=== PATIENT | female | born 1980 | race Caucasian/White ===

== ENCOUNTER 2020-12-13 18:41 | Inpatient (IN) | payer OTHER ==
[~2020-12-13] VITALS: Ht 152.4 cm; Wt 87.3 kg
--- NOTE | ~2020-12-13 | EMS ---
[place] [address] EMS Patient Care Report Name: JACINTO AMADO Room: [facility]#: [id number] Admission: 12/13/20 Attend Phys: Discharge: Date of : [birth year] Report #: [id number] THIS REPORT FOR: //name// Report Transmitted: 12/13/2020 19:16 EMS Care Summary [facility] Incident [id number] @ 12/13/2020 17:47 Incident Location [address] [place] [address] Patient JACINTO AMADO- TONY Female, 40 Years 1980 Patient Address [address] [place] [address] Patient History Cardiac Arrythmia,Hypertension (HTN),Cardiac - Stent,Anxiety, Patient Allergies No known allergies, Patient Medications Carvedilol, Nitroglycerin, ASA, Atorvastatin, Chief Complaint "My chest hurts." Disposition Transported No Lights/[place] Dis[place] Reason Chest Pain (Non-Traumatic) Transported To [facility] Narrative Med 1 response requested to [address] [place] [address] for a female with chest pain. Med 1 copied the call and began our response to the scene. We [place] [address] EMS Patient Care Report Name: JACINTO AMADO Room: [facility]#: [id number] Admission: 12/13/20 Attend Phys: Discharge: Date of : [birth year] Report #: [id number] Sitting up right on the floor right inside the front door to the home we located the patient. Patient being a 40 year old female alert with a GCS of 15. Patient stated that she began having chest pain an hour prior as she was sitting down. The pain began to the left side of her chest and then ran to the upper back. She denied any jaw pain. She denied shortness of air. She did have some nausea without vomiting. Patient was discharged from [facility] the night prior after having stents placed after an [place]. Vitals were obtained at her side. She was given a dose of ASA. ECG 12 lead was obtained. She was placed on oxygen via [place] with capnography. Patient was assisted to stand up and then sit on the cot where she was covered and secured. She was taken to the ambulance and placed inside. Vitals were monitored. ECG monitored. IV access obtained with fluid attached. Zofran IV given for nausea. Nitro spray was given. patient denied any decrease in pain after Nitro was given. Vitals were monitored. We transported non emergent to [place]. Patient was given a second dose of Nitro. She advised again that it did not decrease her discomfort. Vitals were monitored. Report was called in to [facility] via [employer]. We were advised they were on high volume and closed to stroke. Patient wanted to continue to the ER even with high volume status. We advised the ER of the elevation noted in V2,V3,V4 but did not activate as STEMI due to elevation not being elevated enough to meet criteria. Upon arrival to the ER patient was taken inside and to ER 4 where she was moved. Report was given and care was transferred. Signatures were obtained. Med 1 cleared to return to service. Initial Vitals @18:18P: 112,R: 20,BP: 114/77,Pain: 4/10,GCS: 15,EtCO2: 25,SpO2: 99,Revised Trauma: 12, @18:24P: 108,R: 20,BP: 114/70,Pain: 4/10,GCS: 15,EtCO2: 26,SpO2: 98,Revised Trauma: 12, @18:04P: 113,R: 14,BP: 119/78,Pain: 4/10,GCS: 15,EtCO2: 21,SpO2: 100,Revised Trauma: 12, @17:57P: 120,R: 34,BP: 118/70,Pain: 4/10,GCS: 15,SpO2: 99,Revised Trauma: 11, @18:31P: 111,R: 22,BP: 116/70,Pain: 4/10,GCS: 15,EtCO2: 25,SpO2: 98,Revised Trauma: 12, @17:52P: 108,R: 18,BP: 116/70,Pain: 6/10,GCS: 15,Temp: 98.6F,Glucose: 84,SpO2: 99,Revised Trauma: 12, Assessments @17:54MENTAL:Person Oriented,Event Oriented,Time Oriented,Place Oriented,SKIN:HEENT:LUNG SOUNDS:ABDOMEN:PELVIS//GI:EXTREMITIES:PULSE:NEURO:@18:30MENTAL:Place Oriented,Person Oriented,Event Oriented,Time Oriented,SKIN:HEENT:LUNG [address] [address] EMS Patient Care Report Name: JACINTO AMADO Room: [facility]#: [id number] Admission: 12/13/20 Attend Phys: Discharge: Date of : [birth year] Report #: [id number] SOUNDS:ABDOMEN:PELVIS//GI:EXTREMITIES:PULSE:NEURO: Impression Chest Pain / Discomfort Procedures @18:03Lactated Ringers 300cc (20 ga) Site: Hand-LeftResponse: UnchangedSucceeded@17:56Aspirin - 324 Milligrams (mg) - OralResponse: Unchanged@18:06Nitro [place] - 0.4 Milligrams (mg) - SublingualResponse: Unchanged@18:04Zofran - 4 Milligrams (mg) - Intravenous (IV)Response: Improved@18:19Nitro [place] - 0.4 Milligrams (mg) - SublingualResponse: Unchanged@18:1812-Lead ECGResponse: UnchangedSucceeded@18:2412-Lead ECGResponse: UnchangedSucceeded@18:0912-Lead ECGResponse: UnchangedSucceeded@18:0412-Lead ECGResponse: UnchangedSucceeded@17:5712-Lead ECGResponse: UnchangedSucceeded@18:0212-Lead ECGResponse: UnchangedSucceeded Timeline 17:47,Call Received 17:47,Dispatched 17:48,En Route 17:50,On Scene 17:50,At Patient 17:52,BP: 116/70 M,PULSE: 108,RR: 18 R,SPO2: 99 Ox,ETCO2: ,B,PAIN: 6,GCS: 15, 17:56,Aspirin - 324 Milligrams (mg) - Oral,Response: Unchanged 17:57,12-Lead ECG,Response: UnchangedSucceeded, 17:57,BP: 118/70 M,PULSE: 120,RR: 34 R,SPO2: 99 Ox,ETCO2: ,BG: ,PAIN: 4,GCS: 15, 18:02,12-Lead ECG,Response: UnchangedSucceeded, 18:03,Lactated Ringers 300cc 20 ga Site: Hand-Left,Response: UnchangedSucceeded, 18:04,Depart Scene 18:04,Zofran - 4 Milligrams (mg) - Intravenous (IV),Response: Improved 18:04,12-Lead ECG,Response: UnchangedSucceeded, 18:04,BP: 119/78 M,PULSE: 113,RR: 14 R,SPO2: 100 Ox,ETCO2: 21 ,BG: ,PAIN: 4,GCS: 15, 18:06,Nitro [place] - 0.4 Milligrams (mg) - Sublingual,Response: Unchanged 18:09,12-Lead ECG,Response: UnchangedSucceeded, 18:18,12-Lead ECG,Response: UnchangedSucceeded, 18:18,BP: 114/77 M,PULSE: 112,RR: 20 R,SPO2: 99 Ox,ETCO2: 25 ,BG: ,PAIN: 4,GCS: 15, 18:19,Nitro [place] - 0.4 Milligrams (mg) - Sublingual,Response: Unchanged 18:24,12-Lead ECG,Response: UnchangedSucceeded, 18:24,BP: 114/70 M,PULSE: 108,RR: 20 R,SPO2: 98 Ox,ETCO2: 26 ,BG: ,PAIN: 4,GCS: 15, 18:31,BP: 116/70 M,PULSE: 111,RR: 22 R,SPO2: 98 Ox,ETCO2: 25 ,BG: ,PAIN: 4,GCS: 15, [address] [address] EMS Patient Care Report Name: JACINTO AMADO Room: [facility]#: [id number] Admission: 12/13/20 Attend Phys: Discharge: Date of : [birth year] Report #: [id number] 18:38,At Destination 19:00,Call Closed Disclaimer v1.1 Copyright 2020 [employer] This EMS Care Summary contains data elements from the applicable legal record (which may be displayed differently). It is designed to provide pertinent information for the following purposes: continuity of care, clinical quality, and state data reporting. The complete legal record is available to ED staff and administrators of the receiving hospital in [employer]'s Patient Tracker. All data is provided "as is."
[~2020-12-13 18:41] MED LIST: ADVIL; ADVIL100 M2 PO; ALBUTEROL INHAL17 GM IH; BACTRIM DS TAB1 EACH PO; CIPROFLOXACIN500 M1 PO; DIAZEPAM 10 MG10 M1 OR; DOXYCYCLINE 10100 M1 PO; DOXYCYCLINE 10100 MG PO; ERYTHROMYCIN E3.5 G3 OP; FLAGYL500 MG PO; FLEXERIL PO; FLONASE 0.05%50 MCG NASAL; HYDROCODON-ACE1 EAC7 PO; IBUPROFEN 800800 M1 PO; KLONOPIN; LEVAQUIN 750 M750 MG PO; MEDROLDOSEPACK PO; NOHOMEMEDICATIONS; NORCO 5-325 TA1 EACH PO; NORFLEX100 MG PO; PERCOCET 5-3251 EACH PO; PHENERGAN 25 MG25 M1 PO; ROBAXIN 750 MG750 M1 PO; TINDAMAX500 MG PO; TORADOL 10 MG T10 MG PO; ULTRAM 50MG TAB50 MG PO; VICOPROFEN 2001 EACH PO; XANAX 1 MG TABLE1 MG PO; ZOFRAN4 MG PO; ZPAK PO
[2020-12-13 18:43] VITALS: BP 113/73
[2020-12-13] MEDS ORDERED: MARIJUANA (19:07)
[2020-12-13] MEDS ORDERED: IBUPROFEN 800800 M1 PO (19:07)
--- NOTE | 2020-12-13 19:07 | NUR ---
STEMI CANCELED AT 1903.
[2020-12-13] MEDS ORDERED: BENADRYL25 MG PO (19:09)
[2020-12-13] MEDS ORDERED: FIBER GUMMIES1 EACH (19:10)
[2020-12-13] MEDS ORDERED: ASA81BEC PO (19:10)
[2020-12-13] MEDS ORDERED: FLEXERIL PO (19:10)
[2020-12-13 19:11] LABS: ABSOLUTE BASOPHILS 0.1 thou/uL (0.0-0.2); ABSOLUTE EOSINOPHILS 0.1 thou/uL (0.0-0.7); ABSOLUTE LYMPHOCYTES 1.9 thou/uL (0.8-5.3); ABSOLUTE MONOCYTES 0.7 thou/uL (0.0-1.2); ABSOLUTE NEUTROPHILS 7.2 thou/uL (1.6-8.1); BASOPHILS 0.6 %; EOSINOPHILS 1.4 %; HEMATOCRIT 44.2 % (37.0-47.0); HEMOGLOBIN 15.1 gm/dL (12.0-15.0); LYMPHOCYTES 18.7 %; MCH 32.3 pg (26.0-34.0); MCHC 34.1 g/dL (28.0-37.0); MCV 94.7 fL (80.0-100.0); MPV 7.7 fl. (7.2-11.1); NUCLEATED RBCS 0 /100WBC; PLATELET COUNT* 343 thou/uL (150-400); POLYS 72.3 %; RBC 4.67 mil/uL (4.20-5.00); RDW-CV 14.6 % (10.5-14.5)
[2020-12-13] MEDS ORDERED: LAMICTAL XR200 MG PO (19:11)
[2020-12-13] MEDS ORDERED: HALDOL 0.5 MG0.5 MG PO (19:11)
[2020-12-13] MEDS ORDERED: ATIVAN1 M1 PO (19:12)
[2020-12-13] MEDS ORDERED: CLONIDINE HCL0.3 M3 PO (19:12)
[2020-12-13] MEDS ORDERED: ATORVASTATIN CA80 MG PO (19:13)
[2020-12-13 19:14] LABS: POTASSIUM 3.9 mmol/L (3.5-5.1)
[2020-12-13] MEDS ORDERED: CARVEDILOL3.125 MG PO (19:16)
[2020-12-13] MEDS ORDERED: EFFIENT10 MG PO (19:16)
[2020-12-13 19:17] LABS: APTT 27.3 Seconds (25.0-31.3); INR 1.1; PROTIME 11.3 Seconds (9.20-11.50)
[2020-12-13 19:27] LABS: ALBUMIN 3.9 g/dL (3.4-5.0); MAGNESIUM 2.1 mg/dL (1.8-2.4); TOTAL BILIRUBIN 0.5 mg/dL (<0.1-1.0); TOTAL PROTEIN 8.3 g/dL (6.4-8.2)
[2020-12-13 23:47] VITALS: BP 132/76
[2020-12-14] VITALS (14 sets, daily range): BP systolic 100–127; BP diastolic 64–83
--- NOTE | 2020-12-14 11:25 | EKG ---
[place] [address] ELECTROCARDIOGRAM REPORT Name: JACINTO AMADO Room: [address] ADM IN M.R.#: [id number] Admission: 12/13/20 Attend Phys: Antoine Guerra, Discharge: Date of : [birth year] Date of Service: 12/13/20 1846 Report #: [id number] THIS REPORT FOR: //name// [facility] ED Test Date: 2020-12-13 Test Time: 18:46:33 Pat Name: JACINTO AMADO Department: Room: [facility] Gender: F Procurement Inspector: JEM : 1980 Requested By: Vadim Campos Order Number: [id number] MD: Helio Calvin Measurements Intervals [place] Rate: 110 P: 3 OR: 113 QRS: -29 QRSD: 67 T: 56 QT: 319 QTc: 432 Interpretive Statements Sinus tachycardia Borderline left axis deviation Anterior infarct, old Compared to ECG 07/25/2016 06:03:09 Myocardial infarct finding now present ST (T wave) deviation now present Electronically Signed On 12-14-2020 11:25:43 CDT by Helio Calvin [email or web address] <ELECTRONICALLY SIGNED> By: Helio Calvin MD, FACC 12/14/20 1125 1846 1846 Helio Calvin MD, FAC /EPI
--- NOTE | 2020-12-14 11:26 | EKG ---
[place] [address] ELECTROCARDIOGRAM REPORT Name: JACINTO AMADO Room: [address] ADM IN M.R.#: [id number] Admission: 12/13/20 Attend Phys: Antoine Guerra, Discharge: Date of : [birth year] Date of Service: 12/13/201922 Report #: [id number] THIS REPORT FOR: //name// [facility] ED Test Date: 2020-12-13 Test Time: 19:23:58 Pat Name: JACINTO AMADO Department: Room: [facility] Gender: F Screen Cleaner: SILVIO : 1980 Requested By: Abby Charles Order Number: [id number] MD: Helio Calvin Measurements Intervals [place] Rate: 98 P: -10 DC: 118 QRS: -31 QRSD: 96 T: 44 QT: 339 QTc: 433 Interpretive Statements Sinus rhythm Borderline short DC interval Left axis deviation Anterior infarct, old Compared to ECG 12/13/2020 18:46:33 Sinus tachycardia no longer present Myocardial infarct finding still present Electronically Signed On 12-14-2020 11:26:13 CDT by Helio Calvin [email or web address] <ELECTRONICALLY SIGNED> By: Helio Calvin MD, FACC 12/14/20 1126 22 22 Helio Calvin MD, FAC /EPI
--- NOTE | 2020-12-14 11:27 | EKG ---
[place] [address] ELECTROCARDIOGRAM REPORT Name: JACINTO AMADO Room: [address] ADM IN M.R.#: [id number] Admission: 12/13/20 Attend Phys: Antoine Guerra, Discharge: Date of : [birth year] Date of Service: 12/13/202206 Report #: [id number] THIS REPORT FOR: //name// [facility] ED Test Date: 2020-12-13 Test Time: 22:07:18 Pat Name: JACINTO AMADO Department: Room: [facility] Gender: F Rubber Goods Assembler: SILVIO : 1980 Requested By: Abby Charles Order Number: [id number] MD: Helio Calvin Measurements Intervals [place] Rate: 84 P: 50 CA: 126 QRS: 90 QRSD: 137 T: -2 QT: 367 QTc: 434 Interpretive Statements Sinus rhythm Nonspecific intraventricular conduction delay Anterior infarct, old Minimal ST depression, inferior leads Baseline wander in lead(s) V1 Compared to ECG 12/13/2020 19:23:58 Intraventricular conduction delay now present Left-axis deviation no longer present Myocardial infarct finding still present Electronically Signed On 12-14-2020 11:27:12 CDT by Helio Calvin [email or web address] <ELECTRONICALLY SIGNED> By: Helio Calvin MD, [facility] 12/14/201126 06 06 Helio Calvin MD, [facility] /EPI
--- NOTE | 2020-12-14 11:28 | EKG ---
[place] [address] ELECTROCARDIOGRAM REPORT Name: JACINTO AMADO Room: [address] ADM IN M.R.#: [id number] Admission: 12/13/20 Attend Phys: Antoine Guerra, Discharge: Date of : [birth year] Date of Service: 12/13/202206 Report #: [id number] THIS REPORT FOR: //name// [facility] ED Test Date: 2020-12-13 Test Time: 22:07:18 Pat Name: JACINTO AMADO Department: Room: [address] Gender: F Frame Opener: SILVIO : 1980 Requested By: Antoine Guerra Order Number: [id number] MD: Helio Calvin Measurements Intervals [place] Rate: 84 P: 50 [place]: 126 QRS: 90 QRSD: 137 T: -2 QT: 367 QTc: 434 Interpretive Statements Sinus rhythm Nonspecific intraventricular conduction delay Anterior infarct, old Minimal ST depression, inferior leads Baseline wander in lead(s) V1 Compared to ECG 12/13/2020 19:23:58 Left-axis deviation no longer present Myocardial infarct finding still present Electronically Signed On 12-14-2020 11:27:47 CDT by Helio Calvin [email or web address] <ELECTRONICALLY SIGNED> By: Helio Calvin MD, [facility] 12/14/201126 06 06 Helio Calvin MD, [facility] /EPI
--- NOTE | 2020-12-14 12:57 | CARD ---
[address] [address] CARDIAC CATH REPORT Name: JACINTO AMADO Room: [address] IN .R.#: [id number] Admission: 12/13/20 Attend Phys: Antoine Guerra MD Discharge: Date of : [birth year] Report #: [id number] THIS REPORT FOR: cc: FAM - No family physician/PCP FAM - No family physician/PCP Helio Calvin MD LOCATED WITHIN [facility] ~ APPROVED REPORT Study performed: 12/14/2020 09:40:47 Patient Details Patient Status: In-Patient Room #: The patient is a 40 year-old female Event Personnel Ama Salas RN, Heide Tejeda RTR Monitor, Joel Tapia SQUILGEER ScrubMarixa David Mica Washer Gluer Procedures Performed Art Access - R radial artery Left Heart Cath w/or w/o Coronaries MONCHO Place w/wo Plasty Single OM Hemostasis with Hemoband Indication Abnormal ECG, Chest pain Risk Factors Hypercholesterolemia, Coronary Artery Disease, Tobacco History () Previous Procedures/Diagnoses Previous PCI, Previous TX Admission/Lab Medications/Medications given during procedure Heparin Unfract., Oxygen Nasal cannula 2 l per min, 0.9% Sodium Chloride IV 75 ml per hr, Lidocaine Subcut 16 ml, Nitroglycerin IA 600 mcg, Verapamil IA 7.5 mg, Heparin IV 5000 units, Heparin IV 2000 units, Nitroglycerin IC 200 mcg Procedure Narrative The patient was brought electively to the Cardiac Catheterization Laboratory and was prepped and draped in a sterile manner. The right wrist was infiltrated with 2% Lidocaine subcutaneous anesthesia. IV conscious sedation was used [place] [address] CARDIAC CATH REPORT Name: JACINTO AMADO Room: [address] IN [facility].#: [id number] Admission: 12/13/20 Attend Phys: Antoine Guerra MD Discharge: Date of : [birth year] Report #: [id number] monitoring and was performed in the presence of a registered nurse who was an independent trained observer other than the physician performing the procedure. A 6 Fr Slender Glidesheath sheath was inserted into the right radial artery. Coronary angiography was performed using coronary diagnostic catheters. The right coronary system was accessed and visualized with a Diagnostic 6 Fr JR 4 catheter. The left coronary system was accessed and visualized with a Diagnostic 6 Fr JL 4 catheter. The left ventricle was accessed and visualized with a Diagnostic 6 Fr Pigtail catheter. Left ventricular/Aortic Valve gradient assessed via catheter pullback. Left ventriculogram was performed in MCCLENDON projection. Closure device was deployed with a 6 Fr Vasc-Band Reg 24cm. The patient tolerated the procedure well and there were no complications associated with the procedure. There was no hematoma. Intraoperative Conscious Sedation Sedation start time: 10:18 Case end Time: 11:02 Fentanyl 125 mcg Versed 5 mg Fluoro Time: 7.2 minutes Dose: DAP 06633 cGycm2 1226 mGy Contrast Type and Amount: Omnipaque 160 ml Coronary Angiography The patient's coronary anatomy is right dominant. Diagnostic Cath Left Main 0% stenosis LAD Stent in proximal LAD had 0% restenosis. 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 80% stenosis was noted in the apical LAD Circumflex 30% proximal stenosis. After the large second marginal branch, there was a 70% stenosis just after the marginal branch in the distal circumflex that suppled a small distal posterolateral branch OM2 large vessel with proximal 80% stenosis Right Coronary proximal stent had 0% stenosis. Mid RCA had a 30% stenosis Left Ventriculography The left ventricular ejection fraction is estimated to be 30-35%. Left ventricular wall motion abnormalities are present. There is no mitral insufficiency. Severe hypokinesis of the distal anterolateral [place] [address] CARDIAC CATH REPORT Name: JACINTO AMADO Room: [address]#: [id number] Admission: 12/13/20 Attend Phys: Antoine Guerra MD Discharge: Date of : [birth year] Report #: [id number] Hemodynamics The aortic pressure is 119/81 mmHg with a mean of 100 mmHg. The left ventricular pressure is 116/10 mmHg with a mean of mmHg. The left ventricular end diastolic pressure is 20 mmHg. There was no gradient across the aortic valve upon pullback. Pullback from the left ventricle to the aorta revealed no gradient across the aortic valve. PCI Technique Lesion Anticoagulation was achieved with Heparin. Patient was preloaded with Effient. Percutaneous coronary intervention was performed on the second obtuse marginal branch segment. The lesion stenosis prior to intervention was 80% with CRISTA 3 flow. A 6FR XB 3.5 100CM Guide Catheter was used to engage the left ostium. A IG: BMW 190cm Interventional Guidewire was used to cross the lesion. BALLOON DILATION A Balloon catheter Euphora SC 2.5x12 was inserted and inflated up to 16.00atm for 15seconds. Repeat angiography revealed the following post-dilatation results: 40% stenosis. STENT DEPLOYMENT A drug-eluting stent Charan RX Stent 3.0X26mm was inserted and inflated up to 12.00atm for 16seconds. Repeat angiography revealed the following post-stent deployment results: 0% stenosis. Additional Inflation: 22.00atm for 17seconds. Additional Inflation: 22.00atm for 6seconds. After placement of the stent that covered the takeoff of the distal circumflex artery, the 70% ostial stenosis was noted to have worsened. The 90% stenosis appeared to improve after the administration of IC Nitroglycerin. Final angiography reveals 0 % stenosis with CRISTA 3 flow. Conclusion 1. No restenosis of recently implanted stents in the proximal LAD and RCA 2. 80% stenosis of the second marginal branch of the circumflex. 3. successful placement of a drug eluting stent in the second marginal branch. 4. LVEF 30-35% Recommendations Consider elective placement of an ICD [address] [address] CARDIAC CATH REPORT Name: JACINTO AMADO Room: [address] IN M.R.#: [id number] Admission: 12/13/20 Attend Phys: Antoine Guerra MD Discharge: Date of : [birth year] Report #: [id number] Medications Administered Prasugrel <ELECTRONICALLY SIGNED> By: Helio Calvin MD, FACC 12/14/20 1257 1257 [id number] Calvin MD, FACC /INF
--- NOTE | 2020-12-14 19:56 | NUR ---
PT. AOX4, VSS, POST CATH TO R RADIAL SITE CDI, CIRCULATORY STATUS INTACT. PT IN ROOM WITH BOYFRIEND. DENIES CHEST PAIN. HAD EPILEPTIC EPISODE A AROUND 1400 FOR 1 MIN. CHRONIC 2-3 EPISODES PER WEEK HISTORY. NS2 100 ML/HR DCED AT 1800. PT. IN BED, IN TABLE CONDITION, WATCHING TV AT SHIFT CHANGE.
--- NOTE | 2020-12-14 21:33 | NUR ---
Pt stopped while trying to leave floor. Pt was angry and hostile. Pt declared intention to leave AMA. The risks of leaving AMA were explained to pt. Pt was determined to leave. IV's were removed and AMA form was signed.
--- NOTE | 2020-12-16 15:48 | CON ---
[address] [address] CONSULTATION Name: JACINTO AMADO Room: [address] IN M.R.#: [id number] Admission: 12/13/20 Attend Phys: Antoine Guerra MD Discharge: 12/14/20 Date of : [birth year] Report #: [id number] THIS REPORT FOR: cc: FAM - No family physician/PCP FAM - No family physician/PCP Helio Calvin MD [facility] ~ DATE OF CONSULTATION: 12/14/2020 CARDIOLOGY CONSULTATION HISTORY OF PRESENT ILLNESS: This is a 40-year-old white female who I was asked to see in the hospital after she complained of chest pain. Unfortunately, no old records are available. The patient states, however, that 2 years ago, she had a seizure and was admitted to the hospital in [place], [place]. She was told at that time, she had a heart attack secondary to the seizure. She underwent a stress test as an outpatient and was followed up by Dr. Harkins at [facility]. She has never previously had a heart catheterization. She is not very active at this time. However, 3 days ago, she was at home in sleep when she had a seizure. She then complained of chest, arm and jaw discomfort. She went to the hospital in [place], [place]. She was told she was having a heart attack. She was sent by ambulance to [place]. She then was found to have an occluded artery and had a stent placed. She had another artery that had 80% stenosis and had another stent placed. She was told that she had third blocks of 70% and may need a stent in the future. She then was sent home 3 days ago after starting Effient, aspirin, Lipitor and carvedilol. She was doing well until last night. She was walking around the house when she felt a sharp pain in her chest and her back. She felt short of breath, diaphoretic, nauseated. She was brought to [place] by ambulance and admitted for further evaluation and treatment. She denied the pain being related to food, any vomiting, cough, bleeding. She denies any trauma to her chest. The pain is dissimilar from her heart attack pain. She denies a history of exertional dyspnea, palpitations, syncope, peripheral edema. PAST MEDICAL HISTORY: She has had no surgical procedures. She has no history of hypertension or diabetes. She is G1, P0. Her last menstrual period was a week ago. CURRENT MEDICATIONS: Include: 1. Lamictal. 2. Haldol. 3. Effient. 4. Aspirin. 5. Lipitor. 6. [place] [address] CONSULTATION Name: JACINTO AMADO Room: [address] IN M.R.#: [id number] Admission: 12/13/20 Attend Phys: Antoine Guerra MD Discharge: 12/14/20 Date of : [birth year] Report #: [id number] ALLERGIES: She has an allergy to CEPHALOSPORINS. FAMILY HISTORY: Both her mother and father had stents. SOCIAL HISTORY: She is . She and her live in ____ [place]. She does not work at this time. Smokes a pack of cigarettes a day. No alcohol abuse. Smokes marijuana occasionally. She also smokes speed occasionally. REVIEW OF SYSTEMS: No history of stroke. She has had bronchitis in the past. No history of liver disease, kidney disease, cancer, chronic skin condition. PHYSICAL EXAMINATION: GENERAL: Revealed a young female, who appeared in no acute distress. VITAL SIGNS: She had a blood pressure of 110/70, pulse was 90. She was afebrile. HEENT: She was anicteric. Conjunctivae pink. Mucous membranes were moist. NECK: Veins were not distended. No carotid bruits. NECK: Supple. CHEST: Clear to auscultation. CARDIAC: Regular rate and rhythm without murmur. No rub. ABDOMEN: Soft. EXTREMITIES: Had no edema. Dorsalis pedis pulses 2+ bilaterally. SKIN: Cool and dry. NEUROLOGIC: Nonfocal. IMAGING DATA: Her ECG last night showed sinus tachycardia, evidence of recent anterior septal infarction. Her workup in the Emergency Room last night, she had a portable chest x-ray which showed atelectasis, otherwise clear lung hager. LABORATORY DATA: Her lab work last night, creatinine 1.0. Her high sensitivity troponin was elevated at 13,038. BNP 1975. Her hemoglobin was 15.1. Her rapid COVID antigen test was negative. IMPRESSION AND RECOMMENDATIONS: 1. Chest pain. Recent stents. I suspect her elevated troponin is from recent myocardial infarction. I will attempt to obtain the records from [facility]. In the meantime, I would continue Effient and aspirin. 2. Recent anterior infarction. The patient is on a beta-paty. I would consider adding an SONAL inhibitor because of her cardiomyopathy. No evidence of congestive heart failure at this time. 3. High cholesterol. The patient is [place] [address] CONSULTATION Name: JACINTO AMADO Room: [address]#: [id number] Admission: 12/13/20 Attend Phys: Antoine Guerra MD Discharge: 12/14/20 Date of : [birth year] Report #: [id number] 4. Hypertension. The patient is on a beta paty and clonidine. 5. History of seizure disorder. The patient is on Lamictal. 6. Tobacco abuse. 7. History of illicit drug use. <ELECTRONICALLY SIGNED> By: Helio Calvin MD, FACC 12/16/20 1548 0730 [id number] Calvin MD, FACC /nt
== END 2020-12-14 21:30 | disposition left against medical advice (07) | DRG 247 ==
LOC: M.ERS 18:41 → M.TBA-ER 22:22 → M.2W 12-14 00:08
PROVIDERS: Emergency Medicine Emergency Medical Services; ADMIT Internal Medicine; ATTEND Internal Medicine
PROC: 027034Z Dilation of Coronary Artery, One Artery with Drug-eluting Intraluminal Device, Percutaneous Approach (ICD-10-PCS; principal; 2020-12-14)
PROC: B2111ZZ Fluoroscopy of Multiple Coronary Arteries using Low Osmolar Contrast (ICD-10-PCS; principal; 2020-12-14)
PROC: 4A023N7 Measurement of Cardiac Sampling and Pressure, Left Heart, Percutaneous Approach (ICD-10-PCS; principal; 2020-12-14)
PROC: B2151ZZ Fluoroscopy of Left Heart using Low Osmolar Contrast (ICD-10-PCS; principal; 2020-12-14)
DX: I21.4 Non-ST elevation (NSTEMI) myocardial infarction (principal); J45.909 Unspecified asthma, uncomplicated; I24.9 Acute ischemic heart disease, unspecified; F41.9 Anxiety disorder, unspecified; E11.9 Type 2 diabetes mellitus without complications; I10 Essential (primary) hypertension; E78.00 Pure hypercholesterolemia, unspecified; G40.909 Epilepsy, unspecified, not intractable, without status epilepticus; Z20.822 Contact with and (suspected) exposure to COVID-19; Z53.29 Procedure and treatment not carried out because of patient's decision for other reasons; I25.2 Old myocardial infarction; Z95.5 Presence of coronary angioplasty implant and graft; Z88.6 Allergy status to analgesic agent; Z88.8 Allergy status to other drugs, medicaments and biological substances; Z82.49 Family history of ischemic heart disease and other diseases of the circulatory system; Z79.82 Long term (current) use of aspirin; Z79.899 Other long term (current) drug therapy